=== PATIENT | female | born 1965 | race Caucasian/White ===

== ENCOUNTER 2023-12-30 13:30 | Inpatient (IN) | payer OTHER ==
[~2023-12-30] VITALS: Ht 165.1 cm; Wt 82.2 kg
[2023-12-30 14:31] LABS: BASOPHILS % 0.7 % (0.0-2.0); DIFFERENTIAL COMMENT 0; EOSINOPHILS % 2.8 % (0.0-5.0); HEMATOCRIT. 40.7 % (36.0-48.0); HEMOGLOBIN. 14.1 g/dL (12.0-16.0); LYMPHOCYTES % 32.6 % (20.0-50.0); MEAN CORPUSCULAR HEMOGLOBIN 27.2 pg (28.0-32.0); MEAN CORPUSCULAR HGB CONC 34.6 g/dL (31.0-37.0); MEAN CORPUSCULAR VOLUME 78.4 fL (81.0-99.0); MEAN PLATELET VOLUME 7.4 fl (7.4-10.4); MONOCYTES % 6.5 % (2.0-8.0); NEUTROPHILS % 57.4 % (40.0-76.0); PLATELET 256 x1000/uL (130-400); RED BLOOD CELL COUNT 5.19 mill/uL (4.2-5.4); RED CELL DISTRIBUTION WIDTH 14.2 % (11.6-14.6); WHITE BLOOD COUNT 5.6 x1000/uL (4.5-11.0)
[2023-12-30 14:41] LABS: CHLORIDE 105 mEq/L (98-107); POTASSIUM 3.4 mEq/L (3.5-5.1); SODIUM 140 mEq/L (136-145)
[2023-12-30 14:42] LABS: CARBON DIOXIDE 25 mEq/L (21-32)
[2023-12-30 14:47] LABS: CREATININE 0.8 mg/dL (0.6-1.0); GLUCOSE 169 mg/dL (70-105)
[2023-12-30 14:48] LABS: UREA NITROGEN BLOOD 16 mg/dL (9-23)
[2023-12-30 14:57] LABS: TROPONIN I HIGH SENSITIVITY < 4 ng/L (3.0-34)
[2023-12-30 15:13] LABS: PROTHROMBIN TIME 10.7 sec (9.6-11.0)
[2023-12-30] MEDS: IOHEXOL-350 100 ML BOTTLE ONE (15:49)
[2023-12-30 16:42] LABS: TROPONIN I HIGH SENSITIVITY < 4 ng/L (3.0-34)
[2023-12-30] MEDS: LEVETIRACETAM 500MG PREMIX 100 ML IV ONE ×2 (16:45→16:50)
[2023-12-30] MEDS: HYDROCODONE/ACETAMINOPHEN 5/325MG TABLET PO ONE (18:27)
[2023-12-30] MEDS ORDERED: DIPHENHYDRAMINE 50MG/ML VIAL IV PRN (19:30)
[2023-12-30] MEDS ORDERED: CLONIDINE 0.1MG TABLET PO PRN (19:30)
[2023-12-30] MEDS ORDERED: ONDANSETRON HCL 4MG/2ML INJ IV PRN (19:30)
[2023-12-30] MEDS ORDERED: IPRATROPIUM/ALBUTEROL 0.5-3(2.5)MG/3ML NEB HHN PRN (19:30)
[2023-12-30 20:19] LABS: CLARITY URINE CLEAR (CLEAR); COLOR URINE YELLOW (YELLOW); GLUCOSE URINE 3+ (NEGATIVE); KETONES URINE TRACE (NEGATIVE); LEUKOCYTE ESTERASE URINE NEGATIVE (NEGATIVE); NITRITE URINE POSITIVE (NEGATIVE); OCCULT BLOOD URINE NEGATIVE (NEGATIVE); PH URINE 5.5 (4.5-8.0); PROTEIN URINE NEGATIVE (NEGATIVE); SPECIFIC GRAVITY URINE 1.072 (1.005-1.030); UROBILINOGEN URINE 0.2 E.U./dL (0.2-1.0)
[2023-12-30 20:36] LABS: *AMPHETAMINES SCREEN URINE NEGATIVE (NEGATIVE)
[2023-12-30 20:37] LABS: *BARBITURATES SCREEN URINE NEGATIVE (NEGATIVE); *BENZODIAZEPINES SCREEN URINE NEGATIVE (NEGATIVE); *COCAINE SCREEN URINE NEGATIVE (NEGATIVE); CANNABINOID URINE SCREEN NEGATIVE (NEGATIVE); ECSTASY MDMA SCREEN URINE NEGATIVE (NEGATIVE); METHADONE URINE SCREEN NEGATIVE (NEGATIVE); OPIATES URINE SCREEN PRESUMPTIVE POSITIVE (NEGATIVE); PHENCYCLIDINE URINE SCREEN NEGATIVE (NEGATIVE)
[2023-12-30 20:41] LABS: BACTERIA URINE 2+; RBC URINE NONE SEEN /hpf (0-2); SQUAMOUS EPITHELIAL CELL URINE RARE /lpf (RARE/1+)
[2023-12-31 06:54] LABS: CALCIUM 9.9 mg/dL (8.7-10.4); CARBON DIOXIDE 25 mEq/L (21-32); CHLORIDE 105 mEq/L (98-107); POTASSIUM 3.8 mEq/L (3.5-5.1); SODIUM 139 mEq/L (136-145)
[2023-12-31 07:00] LABS: CREATININE 0.7 mg/dL (0.6-1.0); GLUCOSE 128 mg/dL (70-105); UREA NITROGEN BLOOD 15 mg/dL (9-23)
[2023-12-31 07:10] LABS: BASOPHILS % 0.9 % (0.0-2.0); DIFFERENTIAL COMMENT 0; EOSINOPHILS % 3.7 % (0.0-5.0); HEMATOCRIT. 38.7 % (36.0-48.0); HEMOGLOBIN. 13.3 g/dL (12.0-16.0); LYMPHOCYTES % 38.3 % (20.0-50.0); MEAN CORPUSCULAR HEMOGLOBIN 27.3 pg (28.0-32.0); MEAN CORPUSCULAR HGB CONC 34.4 g/dL (31.0-37.0); MEAN CORPUSCULAR VOLUME 79.4 fL (81.0-99.0); MEAN PLATELET VOLUME 7.9 fl (7.4-10.4); MONOCYTES % 8.1 % (2.0-8.0); PLATELET 240 x1000/uL (130-400); RED BLOOD CELL COUNT 4.87 mill/uL (4.2-5.4); RED CELL DISTRIBUTION WIDTH 14.7 % (11.6-14.6); WHITE BLOOD COUNT 4.8 x1000/uL (4.5-11.0)
[2023-12-31] MEDS: SODIUM CHLORIDE 0.9% 1,000 ML IV ONE (09:02)
[2023-12-31 10:00] VITALS: BP 118/58; PULSE 68; RESP 15; TEMP 97.9
[2023-12-31] MEDS ORDERED: CEFTRIAXONE 1GM/50ML 50 ML IV SCH (10:00)
[2023-12-31] MEDS: ACETAMINOPHEN 325MG TABLET PO PRN (10:51)
[2023-12-31] MEDS: ASPIRIN 81MG EC TABLET PO SCH (10:51)
[2023-12-31 12:18] VITALS: BP 147/75; PULSE 63; RESP 18; TEMP 97.8
[2023-12-31 14:05] VITALS: BP 118/59; PULSE 75; RESP 15; TEMP 97.6
[2023-12-31 16:02] VITALS: BP 156/96; PULSE 74; RESP 18; TEMP 97.6
[2023-12-31] MEDS: CEFTRIAXONE 1GM/50ML 50 ML IV SCH (16:21)
[2023-12-31] MEDS ORDERED: LOSA50TA41 PO (19:00)
[2023-12-31] MEDS ORDERED: LORA10TA7 PO (19:00)
[2023-12-31] MEDS ORDERED: EMPA10TA PO (19:10)
[2023-12-31] MEDS ORDERED: FERR325T6 PO (19:10)
[2023-12-31] MEDS ORDERED: GLIP5TAB22 PO (19:10)
[2023-12-31] MEDS ORDERED: PROT40 PO (19:10)
[2023-12-31] MEDS ORDERED: CALC-38 PO (19:10)
[2023-12-31] MEDS ORDERED: DULA1.5P SQ (19:10)
[2023-12-31] MEDS ORDERED: ATOR20TA65 PO (19:10)
[2023-12-31 19:52] VITALS: BP 105/52; PULSE 69; RESP 18; TEMP 97.4
[2023-12-31 20:00] VITALS: BP 105/52; PULSE 69; RESP 18; TEMP 97.4
[2024-01-01] VITALS: BP 110/50; PULSE 70; RESP 18; TEMP 97.6
[2024-01-01] MEDS ORDERED: DEXTROSE 50% WATER 50ML SYRINGE IV PRN (01:45)
[2024-01-01] MEDS: BLOOD SUGAR DIAGNOSTIC STRIP TEST SCH (06:52)
[2024-01-01 08:00] VITALS: BP 115/59; PULSE 65; RESP 18; TEMP 97.6
[2024-01-01] MEDS: INSULIN LISPRO 100 UNITS/ML SUBCUT SCH (08:10)
[2024-01-01 12:00] VITALS: BP 111/65; PULSE 75; RESP 18; TEMP 97.9
[2024-01-01 16:00] VITALS: BP 118/61; PULSE 69; RESP 18; TEMP 97
[2024-01-01 20:00] VITALS: BP 137/72; PULSE 66; RESP 18; TEMP 98.4
[2024-01-02] VITALS: BP 134/70; PULSE 71; RESP 18; TEMP 96.4
[2024-01-02 04:00] VITALS: BP 141/70; PULSE 70; RESP 18; TEMP 98.4
[2024-01-02 07:21] LABS: CHLORIDE 104 mEq/L (98-107); SODIUM 139 mEq/L (136-145)
[2024-01-02 07:22] LABS: CALCIUM 9.9 mg/dL (8.7-10.4); CARBON DIOXIDE 25 mEq/L (21-32)
[2024-01-02 07:24] LABS: BASOPHILS % 0.8 % (0.0-2.0); DIFFERENTIAL COMMENT 0; HEMATOCRIT. 40.2 % (36.0-48.0); HEMOGLOBIN. 13.8 g/dL (12.0-16.0); LYMPHOCYTES % 39.3 % (20.0-50.0); MEAN CORPUSCULAR HEMOGLOBIN 27.1 pg (28.0-32.0); MEAN CORPUSCULAR HGB CONC 34.4 g/dL (31.0-37.0); MEAN CORPUSCULAR VOLUME 78.8 fL (81.0-99.0); MEAN PLATELET VOLUME 7.6 fl (7.4-10.4); MONOCYTES % 8.6 % (2.0-8.0); NEUTROPHILS % 47.3 % (40.0-76.0); PLATELET 255 x1000/uL (130-400); RED CELL DISTRIBUTION WIDTH 14.2 % (11.6-14.6); WHITE BLOOD COUNT 4.6 x1000/uL (4.5-11.0)
[2024-01-02 07:27] LABS: CREATININE 0.7 mg/dL (0.6-1.0); GLUCOSE 125 mg/dL (70-105); UREA NITROGEN BLOOD 13 mg/dL (9-23)
[2024-01-02 07:31] LABS: T4 FREE 1.31 ng/dL (0.89-1.76); THYROID STIMULATING HORMONE 2.84 uIU/mL (0.55-4.78)
[2024-01-02 08:00] VITALS: BP 148/69; PULSE 72; RESP 20; TEMP 97.2
[2024-01-02 12:00] VITALS: BP 125/76; PULSE 67; RESP 20; TEMP 97.2
[2024-01-02 16:00] VITALS: BP 134/83; PULSE 62; RESP 20; TEMP 97.9
[2024-01-02 20:00] VITALS: BP 125/77; PULSE 72; RESP 19; TEMP 97.9
[2024-01-02] MEDS: LEVETIRACETAM 500MG TABLET PO SCH (21:05)
[2024-01-03] VITALS: BP 128/70; PULSE 64; RESP 19; TEMP 97.5
[2024-01-03 04:00] VITALS: BP 122/78; PULSE 72; RESP 18; TEMP 97.4
[2024-01-03 07:08] LABS: CARBON DIOXIDE 25 mEq/L (21-32); CHLORIDE 105 mEq/L (98-107); SODIUM 138 mEq/L (136-145)
[2024-01-03 07:09] LABS: CALCIUM 9.8 mg/dL (8.7-10.4)
[2024-01-03 07:13] LABS: CREATININE 0.6 mg/dL (0.6-1.0)
[2024-01-03 07:14] LABS: GLUCOSE 115 mg/dL (70-105); UREA NITROGEN BLOOD 12 mg/dL (9-23)
[2024-01-03 07:23] LABS: DIFFERENTIAL COMMENT 0; EOSINOPHILS % 5.3 % (0.0-5.0); HEMATOCRIT. 40.8 % (36.0-48.0); LYMPHOCYTES % 44.5 % (20.0-50.0); MEAN CORPUSCULAR HEMOGLOBIN 26.9 pg (28.0-32.0); MEAN CORPUSCULAR HGB CONC 34.3 g/dL (31.0-37.0); MEAN CORPUSCULAR VOLUME 78.4 fL (81.0-99.0); MEAN PLATELET VOLUME 7.7 fl (7.4-10.4); MONOCYTES % 8.5 % (2.0-8.0); NEUTROPHILS % 40.7 % (40.0-76.0); PLATELET 255 x1000/uL (130-400); RED CELL DISTRIBUTION WIDTH 14.4 % (11.6-14.6); WHITE BLOOD COUNT 4.1 x1000/uL (4.5-11.0)
[2024-01-03 08:00] VITALS: BP 18/99; PULSE 70; RESP 18; TEMP 96.9
[2024-01-03 11:56] VITALS: BP 120/64; PULSE 77; RESP 18; TEMP 97.2
[2024-01-03] MEDS ORDERED: LEVO-65 MT (14:36)
[2024-01-03 15:28] VITALS: BP 125/79; PULSE 75; TEMP 97.9; O2SAT 98
[2024-01-03] MEDS ORDERED: KEPP500 MT (15:43)
[2024-01-03 16:00] VITALS: BP 115/66; PULSE 78; RESP 18; TEMP 97.1
== END 2024-01-03 18:05 | disposition home or self-care (01) | DRG 74 ==
LOC: ER 13:34 → EDBEDREQTM 17:36 → EDBEDREQ 17:36 → 5WST 19:03 → 7WST 12-31 09:37
PROVIDERS: ADMIT Internal Medicine; ATTEND Internal Medicine
PROC: 4A00X4Z Measurement of Central Nervous Electrical Activity, External Approach (ICD-10-PCS; principal; 2024-01-02)
DX: G90.8 Other disorders of autonomic nervous system (principal); N39.0 Urinary tract infection, site not specified; G45.9 Transient cerebral ischemic attack, unspecified; R56.9 Unspecified convulsions; E66.9 Obesity, unspecified; B96.89 Other specified bacterial agents as the cause of diseases classified elsewhere; E11.9 Type 2 diabetes mellitus without complications; E78.00 Pure hypercholesterolemia, unspecified; E87.6 Hypokalemia; I10 Essential (primary) hypertension; Z68.30 Body mass index [BMI] 30.0-30.9, adult; Z79.84 Long term (current) use of oral hypoglycemic drugs; Z85.3 Personal history of malignant neoplasm of breast; Z87.440 Personal history of urinary (tract) infections; Z90.12 Acquired absence of left breast and nipple; Z92.21 Personal history of antineoplastic chemotherapy; Z98.82 Breast implant status; Z82.49 Family history of ischemic heart disease and other diseases of the circulatory system; Z80.3 Family history of malignant neoplasm of breast
CPT/HCPCS: 36415; 70496; 70498; 70551; 71045; 73030; 80048; 80305; 80320; 81003; 82533; 82962; 83036; 83605; 83880; 84145; 84439; 84443; 84484; 85025; 87077; 87186; 93005; 93306; 93880; 93970; 95816; 99291; J0696; J1953; Q9967; G0480